=== PATIENT | female | born 1955 | race Two or more races ===

== ENCOUNTER 2023-04-12 08:11 | Inpatient (IN) | payer MEDICARE, MEDICAID ==
[2023-04-07 11:13] LABS: Basophils # (auto) 0.1 10 ^3/uL (0-0.2); Eosinophils # (auto) 0.1 10 ^3/uL (0-0.8); Eosinophils % (auto) 1.4 % (0.0-7.0); Hematocrit 44.3 % (36.0-46.0); Hemoglobin 15.4 g/dL (12.2-16.2); Lymphocytes # (auto) 2.5 10 ^3/uL (0.4-5.4); Lymphocytes % (auto) 44.6 % (10.0-50.0); Mean Corpuscular Hemoglobin 31.1 pg (28.0-32.0); Mean Corpuscular Hgb Conc. 34.6 g/dL (32.0-36.0); Mean Corpuscular Volume 89.8 fL (80.0-100.0); Monocytes # (auto) 0.4 10 ^3/uL (0-1.3); Monocytes % (auto) 7.8 % (0.0-12.0); Neutrophils # (auto) 2.6 10 ^3/uL (1.6-8.6); Neutrophils % (auto) 45.2 % (37.0-80.0); Nucleated Red Blood Cells % 0.1 %; Red Blood Cells 4.94 10^6/uL (4.0-5.20); Red Cell Distribution Width 14.8 % (11.8-14.3); White Blood Cell 5.7 10^3/uL (4.4-10.8)
[2023-04-07 11:23] LABS: INR 0.98 (0.9-1.15); Partial Thromboplastin Time 26.4 SEC (24.5-34.5); Prothrombin Time 10.3 sec (9.3-11.8); Urine Bacteria FEW /hpf (None Seen); Urine Blood Negative /uL (Negative); Urine Clarity HAZY (Clear); Urine Color Yellow (Yellow); Urine Mucus FEW (None Seen); Urine Protein, UAD 1+ (Negative); Urine Specific Gravity 1.034 (1.001-1.035); Urine WBC 3 /hpf (0 - 5); Urine pH 5.5 (5.0-8.0)
[2023-04-07 11:39] LABS: Alanine Aminotransferase 22 U/L (7-40); Albumin 4.8 g/dL (3.2-4.8); Alkaline Phosphatase 61 U/L (46-116); Anion Gap 6 (5-15); Aspartate Aminotransferase 22 U/L (13-40); BUN/Creatinine Ratio 18.1 (10.0-20.0); Bilirubin, Total 0.5 mg/dL (0.2-1.0); Blood Urea Nitrogen 19 mg/dL (9-23); Calcium 9.8 mg/dL (8.7-10.4); Carbon Dioxide 26 mmol/L (20-30); Chloride 105 mmol/L (98-107); Glucose 154 mg/dL (74-106); Potassium 4.6 mmol/L (3.5-5.1); Sodium 137 mmol/L (136-145); Total Protein 7.4 g/dL (5.7-8.2)
[~2023-04-12] VITALS: Ht 152.4 cm; Wt 78.4 kg
[~2023-04-12 08:11] MED LIST: ATOR20TA PO; FAMO-68 PO; GABA400C PO; HYDR-4798 PO; LISI2.5T47 PO; METF-370 PO; NAP500T PO; NORT50CA57 PO; PANT40TA2 PO
[2023-04-12] MEDS ORDERED: ceFAZolin 2 GM/D5W100ml 100 ML IV ONE (09:00)
[2023-04-12] MEDS ORDERED: GLYCOPYRROLATE 0.2 MG/ML 1ML VIAL ONE (09:40)
[2023-04-12] MEDS ORDERED: ONDANSETRON HCL 4 MG/2 ML VIAL ONE (09:40)
[2023-04-12] MEDS ORDERED: DexAMETHasone SOD PHOS 10MG/1ML VIAL INJ ONE (09:40)
[2023-04-12] MEDS ORDERED: PROPOFOL 10 MG/ML 20 ML IV ONE ×2 (09:43→13:39)
[2023-04-12] MEDS ORDERED: PHENYLEPHRINE HCL 10 MG/ML VL ONE (09:43)
[2023-04-12] MEDS ORDERED: LIDOCAINE 4MG/ML IV SOLN 500 ML IV ONE (11:25)
[2023-04-12] MEDS ORDERED: LIDOCAINE 2%HCL (LOCAL ANESTH.) INJ 10ml MDV ONE (11:25)
[2023-04-12] MEDS ORDERED: TRANEXAMIC ACID 20 ML ONE (11:27)
[2023-04-12] MEDS ORDERED: LIDOCAINE W/ EPINEPHRINE 1% 20ML VIAL ONE (11:27)
[2023-04-12] MEDS ORDERED: ACETAMINOPHEN IV 1000 MG/100ML (10MG/ML) IV ONE (11:30)
[2023-04-12] MEDS ORDERED: oxyCODONE ER 20 MG TAB PO ONE (11:30)
[2023-04-12] MEDS ORDERED: GABAPENTIN 400 MG CAP PO ONE (11:30)
[2023-04-12] MEDS ORDERED: MAGNESIUM SULFATE 1GM/100ML 200 ML IV ONE (12:13)
[2023-04-12] MEDS ORDERED: fentaNYL CITRATE 100 MCG/2 ML VL ONE ×2 (13:03→14:56)
[2023-04-12] MEDS ORDERED: ESMOLOL HCL 10 ML IV ONE (13:15)
[2023-04-12] MEDS ORDERED: SUGAMMADEX 200mg/2ml Vial (100MG/ML) IV ONE (13:59)
[2023-04-12] MEDS: D5W/SOD CHLO 0.9% 1,000 ML IV SCH ×3 (14:15→18:45)
[2023-04-12] MEDS ORDERED: NITROGLYCERIN 0.4 MG SL TAB SL PRN (14:15)
[2023-04-12] MEDS ORDERED: ACETAMINOPHEN 325 MG TAB PO PRN (14:15)
[2023-04-12] MEDS ORDERED: MORPHINE SULFATE INJ 2 MG/ml SYRG IV PRN ×2 (14:15)
[2023-04-12] MEDS ORDERED: ONDANSETRON HCL 4 MG/2 ML VIAL IV PRN ×2 (14:15→15:15)
[2023-04-12] MEDS ORDERED: NALOXONE HCL 0.4 MG/ML VIAL ONE (15:07)
[2023-04-12] MEDS ORDERED: fentaNYL CITRATE 100 MCG/2 ML VL IV PRN (15:15)
[2023-04-12] MEDS ORDERED: FLUMAZENIL 0.1 MG/ML INJ 10ML MDV IV PRN (15:15)
[2023-04-12] MEDS ORDERED: LABETALOL HCL 5 MG/ML 4ML SYRINGE IV PRN (15:15)
[2023-04-12] MEDS ORDERED: hydrALAZINE HCL 20 MG/ML VL IV PRN (15:15)
[2023-04-12] MEDS ORDERED: ePHEDrine SULFATE 50 MG/ML AMP IV PRN (15:15)
[2023-04-12] MEDS ORDERED: HYDROmorphone HCL 2 MG/ML VL/or syr IV PRN (15:15)
[2023-04-12] MEDS ORDERED: NALOXONE HCL 0.4 MG/ML VIAL IV PRN (15:15)
[2023-04-12] MEDS ORDERED: DEXTROSE (50%) 50ML SYRG IV PRN (16:00)
[2023-04-12] MEDS: CYCLOBENZAPRINE HCL 10 MG TAB PO SCH (16:03)
[2023-04-12] MEDS: ACCU-CHEK COMFORT CURVE STRIP VI SCH ×2 (18:00→23:58)
[2023-04-12] MEDS: InsuLIN REG 1unit/0.01ml Soln (100units/ml) SC SCH (18:00)
[2023-04-12 18:05] VITALS: PULSE 66; RESP 18; O2SAT 96
[2023-04-12] MEDS: ceFAZolin 1GM/50ML 50 ML IV SCH (18:56)
[2023-04-12 20:00] VITALS: PULSE 108; O2SAT 97
[2023-04-12] MEDS: HYDROcodone-ACET 10/325MG TAB PO PRN (21:17)
[2023-04-12] MEDS: DOCUSATE SOD 100 MG CAP PO SCH (21:17)
[2023-04-12 22:00] VITALS: BP 117/64; PULSE 100; RESP 20; TEMP 98.3; O2SAT 97
[2023-04-13] VITALS (7 sets, daily range): BP systolic 104–135; BP diastolic 62–83; PULSE 77–96; RESP 16–19; TEMP 97.9–98.3; O2SAT 96–99
[2023-04-13] MEDS: InsuLIN REG 1unit/0.01ml Soln (100units/ml) SC SCH ×5 (00:01→23:34)
[2023-04-13] MEDS: ceFAZolin 1GM/50ML 50 ML IV SCH (01:15)
[2023-04-13] MEDS: D5W/SOD CHLO 0.9% 1,000 ML IV SCH (04:50)
[2023-04-13] MEDS: CYCLOBENZAPRINE HCL 10 MG TAB PO SCH ×3 (06:19→22:01)
[2023-04-13] MEDS: ACCU-CHEK COMFORT CURVE STRIP VI SCH ×4 (06:19→23:35)
[2023-04-13 06:39] LABS: Basophils # (auto) 0 10 ^3/uL (0-0.2); Basophils % (auto) 0.1 % (0.0-2.0); Eosinophils # (auto) 0 10 ^3/uL (0-0.8); Hematocrit 39.5 % (36.0-46.0); Hemoglobin 13.4 g/dL (12.2-16.2); Lymphocytes # (auto) 1.4 10 ^3/uL (0.4-5.4); Lymphocytes % (auto) 12.7 % (10.0-50.0); Mean Corpuscular Hemoglobin 30.8 pg (28.0-32.0); Mean Corpuscular Hgb Conc. 33.8 g/dL (32.0-36.0); Mean Corpuscular Volume 91.1 fL (80.0-100.0); Monocytes # (auto) 0.6 10 ^3/uL (0-1.3); Monocytes % (auto) 5.1 % (0.0-12.0); Neutrophils # (auto) 9.2 10 ^3/uL (1.6-8.6); Neutrophils % (auto) 82.1 % (37.0-80.0); Red Blood Cells 4.34 10^6/uL (4.0-5.20); Red Cell Distribution Width 14.2 % (11.8-14.3); White Blood Cell 11.2 10^3/uL (4.4-10.8)
[2023-04-13 07:07] LABS: Alanine Aminotransferase 32 U/L (7-40); Albumin 4.1 g/dL (3.2-4.8); Alkaline Phosphatase 55 U/L (46-116); Anion Gap 8 (5-15); Aspartate Aminotransferase 43 U/L (13-40); BUN/Creatinine Ratio 10.8 (10.0-20.0); Bilirubin, Total 0.3 mg/dL (0.2-1.0); Blood Urea Nitrogen 9 mg/dL (9-23); Calcium 9.2 mg/dL (8.7-10.4); Carbon Dioxide 21 mmol/L (20-30); Chloride 108 mmol/L (98-107); Glucose 200 mg/dL (74-106); Potassium 4.6 mmol/L (3.5-5.1); Sodium 137 mmol/L (136-145); Total Protein 6.3 g/dL (5.7-8.2)
[2023-04-13] MEDS: DOCUSATE SOD 100 MG CAP PO SCH ×2 (08:09→22:01)
[2023-04-13] MEDS: HYDROcodone-ACET 10/325MG TAB PO PRN ×3 (08:09→23:51)
[2023-04-14] VITALS (7 sets, daily range): BP systolic 91–131; BP diastolic 54–75; PULSE 75–90; RESP 18–19; TEMP 98–98.7; O2SAT 94–98
[2023-04-14] MEDS: HYDROcodone-ACET 10/325MG TAB PO PRN ×3 (06:22→18:29)
[2023-04-14] MEDS: ACCU-CHEK COMFORT CURVE STRIP VI SCH ×3 (06:23→17:58)
[2023-04-14] MEDS: CYCLOBENZAPRINE HCL 10 MG TAB PO SCH ×3 (06:23→22:00)
[2023-04-14] MEDS: InsuLIN REG 1unit/0.01ml Soln (100units/ml) SC SCH ×3 (06:34→17:57)
[2023-04-14 07:28] LABS: Basophils # (auto) 0 10 ^3/uL (0-0.2); Basophils % (auto) 0.5 % (0.0-2.0); Eosinophils # (auto) 0 10 ^3/uL (0-0.8); Eosinophils % (auto) 0.4 % (0.0-7.0); Hematocrit 40.3 % (36.0-46.0); Hemoglobin 14.2 g/dL (12.2-16.2); Lymphocytes # (auto) 3.2 10 ^3/uL (0.4-5.4); Lymphocytes % (auto) 30.1 % (10.0-50.0); Mean Corpuscular Hemoglobin 31.4 pg (28.0-32.0); Mean Corpuscular Hgb Conc. 35.2 g/dL (32.0-36.0); Mean Corpuscular Volume 89.1 fL (80.0-100.0); Monocytes # (auto) 0.6 10 ^3/uL (0-1.3); Monocytes % (auto) 5.7 % (0.0-12.0); Neutrophils # (auto) 6.7 10 ^3/uL (1.6-8.6); Neutrophils % (auto) 63.3 % (37.0-80.0); Nucleated Red Blood Cells % 0.1 %; Red Blood Cells 4.52 10^6/uL (4.0-5.20); Red Cell Distribution Width 14.5 % (11.8-14.3); White Blood Cell 10.6 10^3/uL (4.4-10.8)
[2023-04-14 07:49] LABS: Anion Gap 11 (5-15); Calcium 9.6 mg/dL (8.5-10.1); Carbon Dioxide 21 mmol/L (20-30); Chloride 108 mmol/L (98-107); Potassium 3.8 mmol/L (3.5-5.1); Sodium 140 mmol/L (136-145)
[2023-04-14 07:54] LABS: Blood Urea Nitrogen 8 mg/dL (9-23); Glucose 152 mg/dL (74-106)
[2023-04-14 07:55] LABS: BUN/Creatinine Ratio 9.5 (10.0-20.0)
[2023-04-14] MEDS: DOCUSATE SOD 100 MG CAP PO SCH ×2 (12:07→21:59)
[2023-04-15] MEDS: ACCU-CHEK COMFORT CURVE STRIP VI SCH ×3 (00:02→12:14)
[2023-04-15] MEDS: InsuLIN REG 1unit/0.01ml Soln (100units/ml) SC SCH ×3 (00:02→12:17)
[2023-04-15] MEDS: HYDROcodone-ACET 10/325MG TAB PO PRN ×2 (01:35→08:23)
[2023-04-15 05:00] VITALS: BP 89/58; PULSE 49; RESP 16; TEMP 98.3; O2SAT 96
[2023-04-15] MEDS: CYCLOBENZAPRINE HCL 10 MG TAB PO SCH ×2 (06:18→14:59)
[2023-04-15 08:00] VITALS: PULSE 91; RESP 18; O2SAT 96
[2023-04-15] MEDS: DOCUSATE SOD 100 MG CAP PO SCH (08:22)
[2023-04-15 08:30] VITALS: BP 138/63; PULSE 91; RESP 18; TEMP 97.8; O2SAT 96
[2023-04-15 16:38] VITALS: BP 139/66; PULSE 88; RESP 18; TEMP 98.3; O2SAT 97
[2023-04-15] MEDS ORDERED: CEPH500C PO (16:42)
[2023-04-15] MEDS ORDERED: PERCOT PO (16:42)
[2023-04-15 18:14] VITALS: TEMP 36.8
== END 2023-04-15 18:30 | disposition home or self-care (01) | DRG 304 ==
LOC: SUR 08:11 → TELE 14:24 → TELE-WESTW 17:52 → WEST WING 04-13 13:04
PROVIDERS: ADMIT Orthopaedic Surgery; ATTEND Nurse Practitioner Acute Care
PROC: 0SG3071 Fusion of Lumbosacral Joint with Autologous Tissue Substitute, Posterior Approach, Posterior Column, Open Approach (ICD-10-PCS; 2023-04-12)
PROC: 01NB0ZZ Release Lumbar Nerve, Open Approach (ICD-10-PCS; 2023-04-12)
PROC: 01NR0ZZ Release Sacral Nerve, Open Approach (ICD-10-PCS; 2023-04-12)
PROC: 00NY0ZZ Release Lumbar Spinal Cord, Open Approach (ICD-10-PCS; 2023-04-12)
PROC: 4A11X4G Monitoring of Peripheral Nervous Electrical Activity, Intraoperative, External Approach (ICD-10-PCS; 2023-04-12)
PROC: 0SG30AJ Fusion of Lumbosacral Joint with Interbody Fusion Device, Posterior Approach, Anterior Column, Open Approach (ICD-10-PCS; principal; 2023-04-12 12:30)
DX: M48.062 Spinal stenosis, lumbar region with neurogenic claudication (principal); E11.9 Type 2 diabetes mellitus without complications; E66.9 Obesity, unspecified; G89.29 Other chronic pain; I10 Essential (primary) hypertension; E78.5 Hyperlipidemia, unspecified; Z68.33 Body mass index [BMI] 33.0-33.9, adult; N39.0 Urinary tract infection, site not specified; M51.16 Intervertebral disc disorders with radiculopathy, lumbar region
CPT/HCPCS: 36415; 72100; 76000; 80048; 80053; 81001; 82962; 83036; 85025; 85610; 85730; 86850; 86900; 86901; 97110; 97116; 97163; 97530; G0378; J0131; J0690; J1100; J1815; J2001; J2405; J2704